=== PATIENT | female | born 1935 | race Caucasian/White ===

== ENCOUNTER 2018-07-22 07:15 | Inpatient (IN) | payer MEDICARE, BC ==
[2018-07-22] VITALS (12 sets, daily range): BP systolic 106–176; BP diastolic 40–72; PULSE 73–97; TEMP 97.4–98.6
[~2018-07-22] VITALS: Ht 160 cm; Wt 63.7 kg
[~2018-07-22 07:15] MED LIST: NORCO 325 MG-7.1 TAB PO
[2018-07-22] MEDS ORDERED: ARIMIDEX1 MG PO (08:06)
[2018-07-22] MEDS ORDERED: AMITRIPTYLINE H50 M1 PO (08:07)
[2018-07-22] MEDS ORDERED: EFFEXOR XR37.5 MG/CA PO (08:07)
[2018-07-22] MEDS ORDERED: TIMOPTIC 0.5%-15 OU (08:09)
[2018-07-22] MEDS ORDERED: SYNTHROID0.112 MG/T PO (08:11)
[2018-07-22] MEDS ORDERED: VASOTEC 10M10 MG/TAB PO (08:11)
[2018-07-22] MEDS ORDERED: CELEXA40 MG PO (08:12)
[2018-07-22] MEDS ORDERED: ASPIRIN 32325 MG/TAB PO (08:14)
[2018-07-22] MEDS ORDERED: WOMEN'S DAILY F1 TAB PO (08:15)
[2018-07-22] MEDS ORDERED: CALCIUM 600-D 61 TAB PO (08:20)
[2018-07-22] MEDS ORDERED: CALTRATE-600 W600 MG PO (08:22)
--- NOTE | 2018-07-22 08:23 | NUR ---
TO RM AT 0727- CALL LIGHT IN REACH AT BEDSIDE.
--- NOTE | 2018-07-22 12:30 | NUR ---
Patient was back from surgery at about 1150. She was having some pain to right lower chest area. Dressing is clean and dry. No hematoma noted. ROSEY drain to bulb suction. Patient denies nausea. She is sleeping at this time. Family was here but has left for the day. No other changes at this time. Call light within reach.
--- NOTE | 2018-07-22 19:00 | NUR ---
Patient has been doing well since getting back from surgery. She is eating and drinking without nausea. IVF's have been INT'd. She has had norco twice for pain to her right chest. No hematoma noted. Dressing is intact. She has had about 100ml from drain total since getting back from surgery. Voiding without any issues. No other changes at this time. Call light within reach.
--- NOTE | 2018-07-22 19:41 | NUR ---
Pt sitting in bed. Pt c/o pain /- incisional. Pt was given PRN pain meds by Daniela vizcarra nurse. Pt reports pain is being relieved- was 11/24 before medication. R chest incision with dressing- clean dry and intact. ROSEY drain to bulb compression- sangenous drainage noted. Respirations even and unlabored. Lungs clear. BS+. Abdomen soft, nontender. Pedal pulses 2+. Pt refusing SCDs at this time. No further needs noted.
--- NOTE | 2018-07-22 21:30 | NUR ---
Called into pts room. Pt was up to bathroom with help of MARKETING DEVELOPMENT MANAGER. Pt became diaphoretic and dizzy while in bathroom. Pt lowered to floor per MARKETING DEVELOPMENT MANAGER Marcie. No injuries sustained. Pt helped back to bed by Kory SUN. Pt is diaphoretic and states she "doesn't feel well" upon me entering room. VSS. Pt reports she felt a sharp pain in her back when she was in the bathroom before event but that pain is gone. Will continue to monitor.
--- NOTE | 2018-07-22 21:44 | NUR ---
Dr. Loco contacted by Elda SUN. Orders received for stat lab and IVF. Will initiate orders.
--- NOTE | 2018-07-22 21:55 | NUR ---
Attempted to call pts per pt request. He did not answer phone.
--- NOTE | 2018-07-22 22:00 | NUR ---
Pt reports feeling much better. Bed alarm set for patient safety. Pt educated to call if she needs to get up.
[2018-07-22 22:17] LABS: HEMATOCRIT 25.4 % (37.0-47.0); HEMOGLOBIN 8.4 g/dl (12.5-16.0)
--- NOTE | 2018-07-22 22:50 | NUR ---
Labs resulted and reported to Dr. Loco by Elda SUN. No orders received.
[2018-07-23] VITALS (13 sets, daily range): BP systolic 100–135; BP diastolic 36–95; PULSE 60–118; TEMP 97.5–99.3
--- NOTE | 2018-07-23 02:23 | NUR ---
Bed alarm went off. Pt sitting at side of bed with IV catheter removed from her hand. Catheter is intact. New IV started. Bed alarm reset. Call light in reach. Will continue to monitor.
--- NOTE | 2018-07-23 06:00 | NUR ---
Pt sleeping this AM. No distress noted. Easily arousable. Pt very pale still but reports feeling better. VSS. ROSEY drain putting out moderate amount of sangenous drainage. Pt has not been out of bed since her fall earlier. Bed alarm set and pt instructed to call for assistance.
--- NOTE | 2018-07-23 08:18 | NUR ---
rounded this am. orders obtained. called patient spouse to update him on planof care. Consent obtained & lab drawn. Patient prepped for Or. Clean gown on. Patient cared for dentures. Up to the bathroom & voided. New dressing applied to right chest. drainage noted. edges well approximated & brusing noted. Zak emptied & re compressed. bloody output. Patient to Or with Or nurse. Day. Will await her return.
[2018-07-23 08:33] LABS: HEMATOCRIT 24.5 % (37.0-47.0)
--- NOTE | 2018-07-23 10:52 | NUR ---
Patient has returned post op. Vss. Report from Day. Right chest dressing CDI. Zak drain to compression. Ice water provided. Reports pain much improved. Will closely monitor.
--- NOTE | 2018-07-23 11:39 | NUR ---
Patient was not in the room.
--- NOTE | 2018-07-23 14:20 | NUR ---
Patient has done well post op. More awake & visiting with her spouse at bedside. Vss on room air. rounded. Patient to stay the night. Zak drain to compression. Right chest dressing CDI. Late lunch ordered. She denies nausea. Patient assisted up to the bathroom, voided. Put her dentures back in. Will monitor
--- NOTE | 2018-07-23 14:50 | NUR ---
Plan to return home with home health setup with her case fitter. Patient reports that she resides in [facility]. Patient shares that her PCP is Dr. Nelda Aly. Patient reports that she uses a cane prn. Patient indicated that she has a DPOA naming , . Patient Declined SW setting up home health on her behalf. RX obtained from [facility] in [place]. will transport home. Patient denies having any needs at this time SW to follow.
--- NOTE | 2018-07-23 16:22 | NUR ---
Patient resting in bed. Reports elevated pain , especially with movement to her right arm. One tab norco per orders per request. Yang willis.
--- NOTE | 2018-07-23 18:35 | NUR ---
Patient tolerated dinner. Up to the bathroom, steady on her feet. Voiding adeqautely. Right chest dressing remains CDI. ROSEY to compression. Pain managed at this time. Dinner ordered. Will reporpt off to night nurse
[2018-07-24] VITALS (15 sets, daily range): BP systolic 106–145; BP diastolic 41–66; PULSE 77–88; TEMP 97.5–98.5
--- NOTE | 2018-07-24 05:54 | NUR ---
1 NORCO FOR PAIN TO RT UPPER CHEST. NO N/V. PT A BIT FORGETFUL, FORGETTING WHERE SHE WAS AT. BED ALARM ON.
[2018-07-24 06:06] LABS: HEMATOCRIT 19.2 % (37.0-47.0); HEMOGLOBIN 6.2 g/dl (12.5-16.0)
--- NOTE | 2018-07-24 07:53 | NUR ---
notifed this am of critical H&H 6.2, orders obtained. Blood transfusion started per orders & protocol followed. Signs & symptoms of transfusion reaction discussed with patient. She verbalized understanding. Blood started at 60ml/hr to LFA IV. Vss on room air. Verified wtih Macy Rodney Charge nurse RN. This nurse remained at bedside. Patient morning medication given. She did request a pain pill for her back & Right chest pain. Medication per orders. She refused breakfast at this time, denies nausea. Scds ble. Dr. Ledezma rounded this am. Right chest dressing CDI. Zak drain to bulb suction. Will montior closely.
--- NOTE | 2018-07-24 08:23 | NUR ---
Patient continues to tolerate transfusion without signs or symptoms of transfusion reaction. Vss. Will continue to closely monitor
--- NOTE | 2018-07-24 11:01 | NUR ---
Blood has transfued. Patient tolerated well. She is sitting up having a milkshake. Her at bedside. Patient up to the bathroom & voided. Fresh linens provided. Will await H&H results.
[2018-07-24 12:37] LABS: INR 0.9 (0.8-3.0); PROTHROMBIN TIME 10.9 SECONDS (9.7-12.8)
[2018-07-24 12:40] LABS: HEMATOCRIT 22.7 % (37.0-47.0); HEMOGLOBIN 7.4 g/dl (12.5-16.0); PARTIAL THROMBOPLASTIN TIME 23.7 SECONDS (26.0-37.0)
--- NOTE | 2018-07-24 13:00 | NUR ---
H&H RESULTS CALLED TO . lABS FOR AM ORDERED
--- NOTE | 2018-07-24 14:36 | NUR ---
Patient up to the bathroom, voided. Steady on her feet. She denies nausea. Scds ble. One tabnorco for increased complaints of Right chest pain & low back pain. ROSEY drain to compression. Will monitor .
--- NOTE | 2018-07-24 16:09 | NUR ---
Patient reading through her education provided on ROSEY drain. denies questions at this time. SHe reports pain relief. Yang willis.
--- NOTE | 2018-07-24 16:28 | NUR ---
Pillow & ice pack provided for sharp sore pain to right chest. ROSEY drain remains to compression & chest dressing CDI without signs of hematoma
--- NOTE | 2018-07-24 18:04 | NUR ---
Patient dinner orders. Pain managed. Will report off to nightnurse.
--- NOTE | 2018-07-24 18:59 | NUR ---
called, update given on patient. Orders received. Report to Nilson SUN
--- NOTE | 2018-07-24 21:25 | NUR ---
1 UNIT PRBCs STARTED. NO ADVERSE EFFECTS NOTED.
--- NOTE | 2018-07-24 23:22 | NUR ---
UNIT OF BLOOD COMPLETED. NO ADVERSE EFFECTS NOTED.
[2018-07-25 03:39] VITALS: BP 165/73; PULSE 75; TEMP 97.9
[2018-07-25 07:11] LABS: BASO % 0.4 % (0.0-2.0); EOS # 0.3 (0.0-0.7); EOS % 3.9 % (0-4.0); GRAN # 3.4 (1.4-6.5); GRAN % 50.7 % (42.2-75.2); LYMPH # 2.3 (1.2-3.4); LYMPH % 34.9 % (20.0-51.0); MEAN CELL VOLUME 94 fl (80.0-100.0); MEAN CORPUSCULAR HGB CONC 33 g/dl (33.0-37.0); MEAN PLATELET VOLUME 10.5 fl (7.4-10.4); MONO # 0.6 (0.1-0.6); MONO % 9.4 % (1.7-9.3); PLATELET COUNT 181 K/mm3 (130-400); RED BLOOD COUNT 2.69 M/mm3 (4.10-5.30); REDCELL DISTRIBUTION WIDTH-CV 18.8 % (11.5-14.5)
[2018-07-25 07:12] LABS: HEMATOCRIT 25.4 % (37.0-47.0); HEMOGLOBIN 8.4 g/dl (12.5-16.0); MEAN CORPUSCULAR HEMOGLOBIN 31 pg (27.0-31.0)
[2018-07-25 07:22] LABS: CALCIUM 8.8 mg/dL (8.4-10.2); CREATININE, serum 1.36 (0.52-1.25); POTASSIUM 4.1 mmol/L (3.4-5.0)
--- NOTE | 2018-07-25 07:31 | NUR ---
PT IN BED. NO N/V. PT RESTING/SLEEPING. ROSEY INTACT/PATENT.
[2018-07-25 07:56] VITALS: BP 153/64; PULSE 72; TEMP 97.4
--- NOTE | 2018-07-25 09:50 | NUR ---
Patient alert and oriented, answers questions appropriately. See assessment. Right breast incision with edges well approximated, no drainage noted. ROSEY in place to right breast, small amount serosanguinous drainage noted. New dressing applied to incision and drain site. No c/o pain or discomfort at this time.
--- NOTE | 2018-07-25 10:19 | NUR ---
Met with pt this morning. Provided information of prosthetics, and support groups, which she was already aware of. Support provided. Pt seems very comfortable with the support she has at home. Available as needed for follow up.
--- NOTE | 2018-07-25 11:38 | NUR ---
Initial visit; Patient thanked Physical Ther for looking in on her and offering spiritual care and keeping her in Physical Ther's prayers.
[2018-07-25 12:06] VITALS: BP 124/53; PULSE 77; TEMP 97.8
--- NOTE | 2018-07-25 14:01 | NUR ---
Discharge instructions reviewed with patient and spouse, verbalized understanding. Discharged via wheelchair to auto/home with spouse at 1400. Drain care reviewed with patient with return demonstration.
== END 2018-07-25 14:00 | disposition home or self-care (01) | DRG 582 ==
LOC: SDCO 07:15 → SURG 12:05 → SDCO 07-23 09:19 → SURG 07-23 13:21
PROVIDERS: Surgery; ADMIT Surgery
PROC: 0HCT0ZZ Extirpation of Matter from Right Breast, Open Approach (ICD-10-PCS; 2018-07-23)
PROC: 0HTT0ZZ Resection of Right Breast, Open Approach (ICD-10-PCS; principal; 2018-07-23 09:00)
DX: C50.311 Malignant neoplasm of lower-inner quadrant of right female breast (principal); L76.32 Postprocedural hematoma of skin and subcutaneous tissue following other procedure; D62 Acute posthemorrhagic anemia; F32.9 Major depressive disorder, single episode, unspecified; F41.9 Anxiety disorder, unspecified; I10 Essential (primary) hypertension; E03.9 Hypothyroidism, unspecified; J45.909 Unspecified asthma, uncomplicated; Y83.8 Other surgical procedures as the cause of abnormal reaction of the patient, or of later complication, without mention of misadventure at the time of the procedure; Y92.239 Unspecified place in hospital as the place of occurrence of the external cause; G43.909 Migraine, unspecified, not intractable, without status migrainosus; K21.9 Gastro-esophageal reflux disease without esophagitis; Z79.1 Long term (current) use of non-steroidal anti-inflammatories (NSAID); Z79.82 Long term (current) use of aspirin; Z92.21 Personal history of antineoplastic chemotherapy; Z92.3 Personal history of irradiation
CPT/HCPCS: OP; J1100; J1885; J2250; J2405; J2704; J2795; J3010; J7120; P9016